=== PATIENT | male | born 1990 | race Two or more races ===

== ENCOUNTER 2017-08-08 09:48 | Emergency (ER) | payer OTHER ==
[~2017-08-08] VITALS: Ht 180.3 cm; Wt 95.7 kg
== END 2017-08-08 13:13 | disposition home or self-care (01) ==
LOC: ER 09:48
DX: N39.0 Urinary tract infection, site not specified (principal); B34.9 Viral infection, unspecified

== ENCOUNTER 2019-06-12 14:43 | Emergency (ER) | payer OTHER ==
[~2019-06-12] VITALS: Ht 180.3 cm; Wt 88.5 kg
== END 2019-06-12 20:44 | disposition home or self-care (01) ==
LOC: ER 14:43
DX: A08.4 Viral intestinal infection, unspecified (principal)

== ENCOUNTER 2020-06-08 16:26 | Inpatient (IN) | payer OTHER ==
[~2020-06-08] VITALS: Ht 185.4 cm; Wt 88.5 kg
[2020-06-13] MEDS ORDERED: RAYOS5 MG PO (10:50)
[2020-06-13] MEDS ORDERED: MOMETASONE FURO15 G2 TOP (10:53)
== END 2020-06-13 11:48 | disposition home or self-care (01) | DRG 866 ==
LOC: ER 16:26 → MEDI 21:15 → MEDJ 21:15 → MEDI 06-09 06:42 → MEDJ 06-09 07:28 → EDBD 06-13 11:48 → MEDJ 06-13 11:48
PROVIDERS: ADMIT Internal Medicine; ATTEND Internal Medicine
PROC: 8E0ZXY6 Isolation (ICD-10-PCS; principal; 2020-06-08)
DX: A90 Dengue fever [classical dengue] (principal); D69.3 Immune thrombocytopenic purpura; N39.0 Urinary tract infection, site not specified; Z20.828 Contact with and (suspected) exposure to other viral communicable diseases

== ENCOUNTER → 2020-06-22 07:50 | Outpatient (CLI) | payer OTHER ==
[~2020-06-22 07:50] MED LIST: MOMETASONE FURO15 G2 TOP; RAYOS5 MG PO
== END | disposition home or self-care (01) ==
LOC: LAB 07:50
PROVIDERS: ATTEND Internal Medicine Hematology & Oncology
DX: D50.8 Other iron deficiency anemias (principal); R79.89 Other specified abnormal findings of blood chemistry; I10 Essential (primary) hypertension; R74.02 Elevation of levels of lactic acid dehydrogenase [LDH]; K76.89 Other specified diseases of liver; D51.8 Other vitamin B12 deficiency anemias; D69.3 Immune thrombocytopenic purpura; A90 Dengue fever [classical dengue]

== ENCOUNTER → 2020-09-10 09:12 | Outpatient (CLI) | payer OTHER | END | disposition home or self-care (01) | LOC: LAB 09:12 → EDBD 09:12 | PROVIDERS: ATTEND Internal Medicine Hematology & Oncology | DX: D50.8 Other iron deficiency anemias (principal); R79.89 Other specified abnormal findings of blood chemistry; K76.89 Other specified diseases of liver; R74.02 Elevation of levels of lactic acid dehydrogenase [LDH]; I10 Essential (primary) hypertension; D51.8 Other vitamin B12 deficiency anemias; B20 Human immunodeficiency virus [HIV] disease; B17.8 Other specified acute viral hepatitis; Z11.59 Encounter for screening for other viral diseases; A90 Dengue fever [classical dengue] ==

== ENCOUNTER → 2020-11-27 09:00 | Outpatient (CLI) | payer OTHER | END | disposition home or self-care (01) | LOC: LAB 09:00 | PROVIDERS: ATTEND Internal Medicine Hematology & Oncology | DX: D50.8 Other iron deficiency anemias (principal); R79.89 Other specified abnormal findings of blood chemistry; I10 Essential (primary) hypertension; R74.02 Elevation of levels of lactic acid dehydrogenase [LDH]; K76.89 Other specified diseases of liver; D51.8 Other vitamin B12 deficiency anemias; D69.3 Immune thrombocytopenic purpura; A90 Dengue fever [classical dengue] ==

== ENCOUNTER 2021-03-26 08:06 | Outpatient (CLI) | payer OTHER | END 2021-03-26 08:21 | disposition home or self-care (01) | LOC: SONOGRAMA 08:06 | PROVIDERS: ATTEND Internal Medicine Hematology & Oncology | DX: E04.2 Nontoxic multinodular goiter (principal); D69.3 Immune thrombocytopenic purpura; G47.33 Obstructive sleep apnea (adult) (pediatric) ==

== ENCOUNTER 2021-05-31 09:14 | Outpatient (CLI) | payer OTHER | END 2021-05-31 09:25 | disposition home or self-care (01) | LOC: LAB 09:14 | PROVIDERS: ATTEND Internal Medicine Hematology & Oncology | DX: D50.8 Other iron deficiency anemias (principal); R79.89 Other specified abnormal findings of blood chemistry; I10 Essential (primary) hypertension; R74.02 Elevation of levels of lactic acid dehydrogenase [LDH]; K76.89 Other specified diseases of liver; D51.1 Vitamin B12 deficiency anemia due to selective vitamin B12 malabsorption with proteinuria; D51.0 Vitamin B12 deficiency anemia due to intrinsic factor deficiency; D63.1 Anemia in chronic kidney disease; E03.8 Other specified hypothyroidism; E06.3 Autoimmune thyroiditis; D69.3 Immune thrombocytopenic purpura; A90 Dengue fever [classical dengue]; G47.33 Obstructive sleep apnea (adult) (pediatric) ==

== ENCOUNTER 2021-06-23 09:02 | Outpatient (CLI) | payer OTHER | END 2021-06-23 15:00 | disposition home or self-care (01) | LOC: LAB 09:02 | PROVIDERS: ATTEND Internal Medicine Hematology & Oncology | DX: E03.8 Other specified hypothyroidism (principal); D50.8 Other iron deficiency anemias; R79.89 Other specified abnormal findings of blood chemistry; I10 Essential (primary) hypertension; R74.02 Elevation of levels of lactic acid dehydrogenase [LDH]; K76.89 Other specified diseases of liver; D51.1 Vitamin B12 deficiency anemia due to selective vitamin B12 malabsorption with proteinuria; D51.0 Vitamin B12 deficiency anemia due to intrinsic factor deficiency; D63.1 Anemia in chronic kidney disease; E06.3 Autoimmune thyroiditis; D69.3 Immune thrombocytopenic purpura; A90 Dengue fever [classical dengue]; G47.33 Obstructive sleep apnea (adult) (pediatric) ==

== ENCOUNTER 2022-02-16 08:08 | Outpatient (CLI) | payer OTHER | END 2022-02-16 08:09 | disposition home or self-care (01) | LOC: LAB 08:08 | PROVIDERS: ATTEND Internal Medicine Hematology & Oncology | DX: D50.8 Other iron deficiency anemias (principal); R79.9 Abnormal finding of blood chemistry, unspecified; I10 Essential (primary) hypertension; R74.02 Elevation of levels of lactic acid dehydrogenase [LDH]; K76.89 Other specified diseases of liver; D69.3 Immune thrombocytopenic purpura; A90 Dengue fever [classical dengue]; G47.33 Obstructive sleep apnea (adult) (pediatric) ==

== ENCOUNTER 2025-01-28 10:30 | Outpatient (CLI) | payer OTHER ==
[2025-01-28 11:49] LABS: BASO % 0.7 % (0.1-1.2); EOS # 0.13 (0.04-0.54); EOS % 2.9 % (0.7-7.0); LYMPH # 1.34 (1.18-3.74); LYMPH % 30.1 % (19.3-53.1); MEAN PLATELET VOLUME 12.90 fl (9.4-12.4); MONO # 0.34 (0.24-0.82); MONO % 7.6 % (4.7-12.5); NEUT # 2.60 (1.56-6.13); NEUT % 58.5 % (34.0-71.1); RED CELL DISTRIBUTION WIDTH 13.8 % (11.6-14.4)
[2025-01-28 12:51] LABS: % SATURACION 18.3 % (20-50); ALT/SGPT 35.0 U/L (12-78); AST/SGOT 16.0 U/L (15-37); BILIRUBIN TOTAL 0.72 mg/dL (0.3-1.2); BUN CREA RATIO 18.0 (7.0-25.0); CHOL HDL RATIO 3.1 (0-5.0); CREATININE SERUM 0.94 mg/dL (0.70-1.30); FE 76.0 ug/dl (65-175); GFR 91.33; GLOBULINA 3.2 G/DL (2.4-3.5); GLUCOSE FASTING 89.0 mg/dL (65-100); HDL 65.0 mg/dl (40-60); LDH 145.0 U/L (87-241); LDL 121.0 mg/dl (0-130); OSMOLALITY SERUM 282.0 MOSM/KG (275-295); T4 FREE 0.99 NG/ML (0.76-1.46); TSH 2.06 uIU/mL (0.358-3.74); VLDL 13.0 (0-39)
[2025-01-28 13:24] LABS: MANUAL PLATELET COUNT 105
[2025-01-28 13:46] LABS: FOLIC ACID 19.97 ng/ml (4.78-20); VITAMIN D3 25 HYDROXY 35.37 ng/ml (30-120)
[2025-01-30 09:08] LABS: hav igm Negative (Negative); hep b c Negative (Negative); hep b s ag Negative (Negative)
== END 2025-01-28 10:37 | disposition home or self-care (01) ==
LOC: LAB 10:30
PROVIDERS: ATTEND Internal Medicine Hematology & Oncology
DX: D50.8 Other iron deficiency anemias (principal); R79.9 Abnormal finding of blood chemistry, unspecified; I10 Essential (primary) hypertension; R74.02 Elevation of levels of lactic acid dehydrogenase [LDH]; K76.89 Other specified diseases of liver; D51.3 Other dietary vitamin B12 deficiency anemia; E55.9 Vitamin D deficiency, unspecified; Z13.29 Encounter for screening for other suspected endocrine disorder; B17.9 Acute viral hepatitis, unspecified; Z11.59 Encounter for screening for other viral diseases; E78.2 Mixed hyperlipidemia; E03.8 Other specified hypothyroidism; D69.3 Immune thrombocytopenic purpura; A90 Dengue fever [classical dengue]; G47.33 Obstructive sleep apnea (adult) (pediatric); R94.5 Abnormal results of liver function studies

== ENCOUNTER 2025-06-07 14:45 | Emergency (ER) | payer OTHER ==
[~2025-06-07] VITALS: Ht 152.4 cm; Wt 97.1 kg
[2025-06-07] MEDS ORDERED: 0.9 % SODIUM CHLORIDE 1,000 ML IV SCH (15:30)
[2025-06-07] MEDS ORDERED: CEFTRIAXONE SODIUM 2,000 MG VIAL IV ONE (15:30)
[2025-06-07] MEDS ORDERED: CEFTRIAXONE SODIUM 2,000 MG VIAL ONE (17:01)
[2025-06-07 17:39] LABS: BASO % 0.5 % (0.1-1.2); EOS # 0.10 (0.04-0.54); EOS % 1.7 % (0.7-7.0); LYMPH # 1.72 (1.18-3.74); LYMPH % 29.2 % (19.3-53.1); MEAN PLATELET VOLUME 13.30 fl (9.4-12.4); MONO # 0.45 (0.24-0.82); MONO % 7.6 % (4.7-12.5); NEUT # 3.59 (1.56-6.13); NEUT % 60.8 % (34.0-71.1); RED CELL DISTRIBUTION WIDTH 13.8 % (11.6-14.4)
[2025-06-07 17:59] LABS: ALT/SGPT 35.0 U/L (12-78); AST/SGOT 17.0 U/L (15-37); BILIRUBIN TOTAL 0.49 mg/dL (0.3-1.2); BUN CREA RATIO 14.0 (7.0-25.0); CREATININE SERUM 1.32 mg/dL (0.70-1.30); GFR 61.72; GLOBULINA 3.3 G/DL (2.4-3.5); GLUCOSE FASTING 95.0 mg/dL (65-100); OSMOLALITY SERUM 289.0 MOSM/KG (275-295)
[2025-06-07 18:09] LABS: URINE APPEARANCE Clear; URINE BILIRRUBIN Negative (NEGATIVE); URINE BLOOD Small; URINE COLOR Yellow; URINE GLUCOSE Negative (NEGATIVE); URINE KETONE Trace (NEGATIVE); URINE LEUKOCYTE Small; URINE NITRATE Negative; URINE PROTEIN 30 (NEGATIVE); URINE UROBILINOGEN 1.0 E.U./dl
[2025-06-07 18:19] LABS: URINE BACTERIA 67.1 uL (0.0-1933); URINE EPITHELIAL CELLS 2.3 uL (0.0-38.8); URINE RBC 159.4 uL (0.0-20.8); URINE WBC 599.9 uL (0.0-23.2)
[2025-06-07 19:06] LABS: URINE CAST 0.43 uL (0.0-1.40); URINE YEAST NEGATIVE /hpf
== END 2025-06-08 00:27 | disposition home or self-care (01) ==
LOC: ER 14:45
PROVIDERS: General Practice
DX: N30.00 Acute cystitis without hematuria (principal); D69.3 Immune thrombocytopenic purpura